=== PATIENT | female | born 1970 | race Caucasian/White ===

== ENCOUNTER 2025-02-25 10:18 | Emergency (ER) | payer BC ==
[2025-02-25] MEDS ORDERED: Proparacaine 0.5% Opth 15 ML BOT ONE (11:16)
[2025-02-25] MEDS ORDERED: Fluorescein Opthalmic Strip ONE (11:16)
== END 2025-02-25 13:48 | disposition home or self-care (01) ==
LOC: ERS 10:18
DX: H57.11 Ocular pain, right eye (principal); M54.2 Cervicalgia; H92.02 Otalgia, left ear; M54.6 Pain in thoracic spine; F17.290 Nicotine dependence, other tobacco product, uncomplicated; W19.XXXA Unspecified fall, initial encounter
CPT/HCPCS: 70450; 72125